=== PATIENT | female | born 1975 | race Caucasian/White ===

== ENCOUNTER 2021-04-17 11:40 | Day surgery (SDC) | payer BC ==
[2021-04-17] MEDS ORDERED: cefOXitin 1 GM in Premix Bag 1 BAG IV ONE (12:38)
[2021-04-17] MEDS ORDERED: Bupivacaine 0.5%/EPINEPHrine 1:200,000 50 ML MDV ONE (13:13)
[2021-04-17] MEDS ORDERED: Ondansetron 4 MG/2 ML SDV ONE (13:20)
[2021-04-17] MEDS ORDERED: Lactated Ringers 1,000 ML ONE (13:20)
[2021-04-17] MEDS ORDERED: Rocuronium 50 MG/5 ML Vial ONE (13:20)
[2021-04-17] MEDS ORDERED: Lidocaine 1% 4 ML ONE (13:20)
[2021-04-17] MEDS ORDERED: fentaNYL 250 MCG/5 ML SDV ONE (13:20)
[2021-04-17] MEDS ORDERED: Midazolam 1 MG/ML 2 ML SDV ONE (13:20)
[2021-04-17] MEDS ORDERED: Propofol 200 MG/20 ML SDV ONE (13:20)
[2021-04-17] MEDS ORDERED: Dexamethasone 4 MG/ML 5 ML MDV ONE (13:20)
[2021-04-17] MEDS ORDERED: Succinylcholine/Sod PF 100 MG/5 ML SYRINGE IV ONE (13:21)
--- NOTE | 2021-04-17 13:41 | PCM.PREANE ---
Preanesthetic Assessment - Procedure Proposed Procedure: Laparoscopic Appendectomy - Anesthesia/Transfusion/Family Hx Anesthesia History: Prior Anesthesia Without Reaction Family History of Anesthesia Reaction: No Intubation History: Unknown - Review of Systems General: No Symptoms Pulmonary: No Symptoms Cardiovascular: No Symptoms Gastrointestinal: Abdominal Pain (Mild), Decreased Appetite, Nausea (Earlier today) Neurological: No Symptoms Other: Reports: None - Physical Assessment NPO Status Date: 04/17/21 NPO Status Time: 09:30 ([place]) Vital Signs: Last Vital Signs Temp 36.4 C 04/17/21 11:53 Pulse 67 04/17/21 11:53 Resp 18 04/17/21 11:53 BP 111/73 04/17/21 11:53 Pulse Ox 100 04/17/21 11:53 Height: 1.78 m Weight: 92.941 kg ASA Class: 2 Mental Status: Alert & Oriented x3 Airway Class: Mallampati = 1 Dentition: Reports: Normal Dentition Thyro-Mental Finger Breadths: 3 Mouth Opening Finger Breadths: 3 ROM/Head Extension: Full Lungs: Clear to Auscultation, Normal Respiratory Effort Cardiovascular: Regular Rate, Regular Rhythm - Allergies Allergies/Adverse Reactions: Allergies Allergy/AdvReac Type Severity Reaction Status Date / Time amoxicillin [From Augmentin] Allergy Stomach Verified 04/17/21 11:49 Upset clarithromycin [From Biaxin] Allergy Rash Verified 04/17/21 11:49 clavulanic acid Allergy Stomach Verified 04/17/21 11:49 [From Augmentin] Upset - Acknowledgements Anesthesia Type Planned: General Anesthesia Pt an Appropriate Candidate for the Planned Anesthesia: Yes Alternatives and Risks of Anesthesia Discussed w Pt/Guardian: Yes Pt/Guardian Understands and Agrees with Anesthesia Plan: Yes PreAnesthesia Questionnaire HEENT History: Reports: Impaired Vision Cardiovascular History: Reports: None Respiratory History: Reports: Asthma Other Respiratory History: exercise induced Gastrointestinal History: Reports: None Genitourinary History: Reports: None [employer]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: Musculoskeletal History: Reports: None Neurological History: Reports: None Psychiatric History: Reports: None Endocrine/Metabolic History: Reports: None Hematologic History: Reports: None Immunologic History: Reports: None Oncologic (Cancer) History: Reports: None Dermatologic History: Reports: None - Infectious Disease History Infectious Disease History: Reports: Chicken Pox - Past Surgical History Head Surgeries/Procedures: Reports: None HEENT Surgical History: Reports: None Female Surgical History: Reports: Other (See Below) Other Female Surgeries/Procedures: Left ovary removed for twisted ovary w/cyst - SUBSTANCE USE Tobacco Use Status *Q: Never Tobacco User Second Hand Smoke Exposure: No Recreational Drug Use History: No - HOME MEDS Home Medications: Home Meds . [No Known Home Meds] 04/17/21 [History] - CURRENT (IN HOUSE) MEDS Current Meds: Current Medications Discontinued Medications Bupivacaine HCl/Epinephrine Bitart (Bupivacaine 0.5%/Epinephrine 1:200,000 50 Ml Mdv) Confirm Administered Dose 50 ml .ROUTE .STK-MED ONE Stop: 04/17/21 13:14 Dexamethasone (Dexamethasone 4 Mg/Ml 5 Ml Mdv) Confirm Administered Dose 20 mg .ROUTE .STK-MED ONE Stop: 04/17/21 13:21 Fentanyl (Fentanyl 250 Mcg/5 Ml Sdv) Confirm Administered Dose 250 mcg .ROUTE .STK-MED ONE Stop: 04/17/21 13:21 Cefoxitin Sodium 1 gm/ Premix 50 mls @ 100 mls/hr IV ONETIME ONE Stop: 04/17/21 13:07 Last Admin: 04/17/21 12:55 Dose: 100 mls/hr Documented by: Lidocaine HCl (Xylocaine-Mpf 1%) Confirm Administered Dose 4 mls @ as directed .ROUTE .STK-MED ONE Stop: 04/17/21 13:21 Lactated Ringer's (Ringers, Lactated) Confirm Administered Dose 1,000 mls @ as directed .ROUTE .STK-MED ONE Stop: 04/17/21 13:21 Midazolam HCl (Midazolam 1 Mg/Ml 2 Ml Sdv) Confirm Administered Dose 2 mg .ROUTE .STK-MED ONE Stop: 04/17/21 13:21 Ondansetron HCl (Ondansetron 4 Mg/2 Ml Sdv) Confirm Administered Dose 4 mg .ROUTE .STK-MED ONE Stop: 04/17/21 13:21 Propofol (Propofol 200 Mg/20 Ml Sdv) Confirm Administered Dose 400 mg .ROUTE .STK-MED ONE Stop: 04/17/21 13:21 Rocuronium [place] (Rocuronium 50 Mg/5 Ml Vial) Confirm Administered Dose 50 mg .ROUTE .STK-MED ONE Stop: 04/17/21 13:21
--- NOTE | 2021-04-17 14:07 | PCM.HP.2 ---
H&P History of Present Illness - General Date of Service: 04/17/21 Admit Problem/Dx: Admission Diagnosis/Problem Admission Diagnosis/Problem Appendicitis Source of Information: Patient History Limitations: Reports: No Limitations - History of Present Illness Initial Comments - Free Text/Narative: The patient had apigastric abdominal pain yesterday that became periumbilical then went to the right lower quadrant. SHe went to the hospital in [place] this AM. She did not have fevers or chills. SHe had some nausea without vomiting. She was worked up where her WBC was normal, UA was normal, Chemistry was normal and vitals were normal. CT of abd pelvis showed mild appendicitis. I was consulted and asked that she be transferred for care here. Duration of Symptoms: Reports: Day(s): (1) Location: Reports: Abdomen Quality: Reports: Ache Severity: Moderate Improves with: Reports: None, Immobilization Worsens with: Reports: Movement Right Lower Abdomen Pain Score (Numeric/FACES): 5 - Related Data Allergies/Adverse Reactions: Allergies Allergy/AdvReac Type Severity Reaction Status Date / Time amoxicillin [From Augmentin] Allergy Stomach Verified 04/17/21 11:49 Upset clarithromycin [From Biaxin] Allergy Rash Verified 04/17/21 11:49 clavulanic acid Allergy Stomach Verified 04/17/21 11:49 [From Augmentin] Upset Home Medications: Home Meds . 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: Musculoskeletal History: Reports: None Neurological History: Reports: None Psychiatric History: Reports: None Endocrine/Metabolic History: Reports: None Hematologic History: Reports: None Immunologic History: Reports: None Oncologic (Cancer) History: Reports: None Dermatologic History: Reports: None - Infectious Disease History Infectious Disease History: Reports: Chicken Pox - Past Surgical History Head Surgeries/Procedures: Reports: None HEENT Surgical History: Reports: None Female Surgical History: Reports: Other (See Below) Other Female Surgeries/Procedures: Left ovary removed for twisted ovary w/cyst Social & Family History - Family History Family Medical History: No Pertinent Family History - Tobacco Use Tobacco Use Status *Q: Never Tobacco User Second Hand Smoke Exposure: No - Caffeine Use Caffeine Use: Reports: Soda - Recreational Drug Use Recreational Drug Use: No H&P Review of Systems - Review of Systems: Review Of Systems: See Below General: Reports: No Symptoms HEENT: Reports: No Symptoms Pulmonary: Reports: No Symptoms Cardiovascular: Reports: No Symptoms Gastrointestinal: Reports: Abdominal Pain Genitourinary: Reports: No Symptoms Musculoskeletal: Reports: No Symptoms Skin: Reports: No Symptoms Exam - Exam Exam: See Below - Vital Signs Vital Signs: Last Vital Signs Temp 97.6 F 04/17/21 11:53 Pulse 67 04/17/21 11:53 Resp 18 04/17/21 11:53 BP 111/73 04/17/21 11:53 Pulse Ox 100 04/17/21 11:53 Weight: 92.941 kg - Exam General: Alert, Oriented, Cooperative Lungs: Clear to Auscultation, Normal Respiratory Effort Cardiovascular: Regular Rate, Regular Rhythm, Normal S1, Normal S2 GI/Abdominal Exam: Soft, No Organomegaly, No Distention, No Abnormal Bruit, Tender (periumbilical and RLQ) - Patient Data Lab Results Last 24 hrs: Laboratory Results - last 24 hr 04/17/21 Range/Units 13:00 SARS-CoV-2 RNA (JACKIE) Negative (NEGATIVE) Sepsis Event Note - Evaluation Sepsis Screening Result: No Definite Risk - Focused Exam Vital Signs: Vital Signs Temp Pulse Resp BP Pulse Ox 04/17/21 11:53 97.6 F 67 18 111/73 100 Problem List Initiated/Reviewed/Updated: No Orders Last 24hrs: Active Orders 24 hr Category Date Time Status Admission Status [Patient Status] [ADT] Routine ADT 04/17/21 13:01 Active Schedule Procedure [COMM] Stat Oth 04/17/21 13:04 Ordered Assessment/Plan Comment:: I reviewed the labs and confirmed the exam findings. I also reviewed the CT imaging. Based on these data, the patient has acute appendicitis. I discussed with her and her about options including antibiotics alone vs surgery. We discussed risks and benefits of each option. The patient wanted to proceed with surgery. Informed consent was obtained. We will proceed with surgery this afternoon.
--- NOTE | 2021-04-17 14:22 | PCM.PREANE ---
Preanesthetic Assessment - Anesthesia/Transfusion/Family Hx Anesthesia History: Prior Anesthesia Without Reaction Family History of Anesthesia Reaction: No Intubation History: Unknown - Physical Assessment NPO Status Date: 04/17/21 NPO Status Time: 09:30 ([place]) Vital Signs: Last Vital Signs Temp 36.4 C 04/17/21 11:53 Pulse 67 04/17/21 11:53 Resp 18 04/17/21 11:53 BP 111/73 04/17/21 11:53 Pulse Ox 100 04/17/21 11:53 Height: 1.78 m Weight: 92.941 kg - Lab Values: Laboratory Last Values SARS-CoV-2 RNA (JACKIE) Negative (NEGATIVE) 04/17/21 13:00 - Allergies Allergies/Adverse Reactions: Allergies Allergy/AdvReac Type Severity Reaction Status Date / Time amoxicillin [From Augmentin] Allergy Stomach Verified 04/17/21 11:49 Upset clarithromycin [From Biaxin] Allergy Rash Verified 04/17/21 11:49 clavulanic acid Allergy Stomach Verified 04/17/21 11:49 [From Augmentin] Upset PreAnesthesia Questionnaire HEENT History: Reports: Impaired Vision Cardiovascular History: Reports: None Respiratory History: Reports: Asthma Other Respiratory History: exercise induced Gastrointestinal History: Reports: None Genitourinary History: Reports: None 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: Musculoskeletal History: Reports: None Neurological History: Reports: None Psychiatric History: Reports: None Endocrine/Metabolic History: Reports: None Hematologic History: Reports: None Immunologic History: Reports: None Oncologic (Cancer) History: Reports: None Dermatologic History: Reports: None - Infectious Disease History Infectious Disease History: Reports: Chicken Pox - Past Surgical History Head Surgeries/Procedures: Reports: None HEENT Surgical History: Reports: None Female Surgical History: Reports: Other (See Below) Other Female Surgeries/Procedures: Left ovary removed for twisted ovary w/cyst - SUBSTANCE USE Tobacco Use Status *Q: Never Tobacco User Second Hand Smoke Exposure: No Recreational Drug Use History: No - HOME MEDS Home Medications: Home Meds . [No Known Home Meds] 04/17/21 [History] - CURRENT (IN HOUSE) MEDS Current Meds: Current Medications Discontinued Medications Bupivacaine HCl/Epinephrine Bitart (Bupivacaine 0.5%/Epinephrine 1:200,000 50 Ml Mdv) Confirm Administered Dose 50 ml .ROUTE .STK-MED ONE Stop: 04/17/21 13:14 Dexamethasone (Dexamethasone 4 Mg/Ml 5 Ml Mdv) Confirm Administered Dose 20 mg .ROUTE .STK-MED ONE Stop: 04/17/21 13:21 Fentanyl (Fentanyl 250 Mcg/5 Ml Sdv) Confirm Administered Dose 250 mcg .ROUTE .STK-MED ONE Stop: 04/17/21 13:21 Cefoxitin Sodium 1 gm/ Premix 50 mls @ 100 mls/hr IV ONETIME ONE Stop: 04/17/21 13:07 Last Admin: 04/17/21 12:55 Dose: 100 mls/hr Documented by: Lidocaine HCl (Xylocaine-Mpf 1%) Confirm Administered Dose 4 mls @ as directed .ROUTE .STK-MED ONE Stop: 04/17/21 13:21 Lactated Ringer's (Ringers, Lactated) Confirm Administered Dose 1,000 mls @ as directed .ROUTE .STK-MED ONE Stop: 04/17/21 13:21 Midazolam HCl (Midazolam 1 Mg/Ml 2 Ml Sdv) Confirm Administered Dose 2 mg .ROUTE .STK-MED ONE Stop: 04/17/21 13:21 Ondansetron HCl (Ondansetron 4 Mg/2 Ml Sdv) Confirm Administered Dose 4 mg .ROUTE .STK-MED ONE Stop: 04/17/21 13:21 Propofol (Propofol 200 Mg/20 Ml Sdv) Confirm Administered Dose 400 mg .ROUTE .STK-MED ONE Stop: 04/17/21 13:21 Rocuronium [place] (Rocuronium 50 Mg/5 Ml Vial) Confirm Administered Dose 50 mg .ROUTE .STK-MED ONE Stop: 04/17/21 13:21
[2021-04-17] MEDS ORDERED: Ketorolac 30 MG/ML SDV ONE (14:40)
[2021-04-17] MEDS ORDERED: fentaNYL 100 MCG/2 ML SDV IVPUSH PRN (15:09)
[2021-04-17] MEDS ORDERED: Ondansetron 4 MG/2 ML SDV IVPUSH PRN (15:09)
--- NOTE | 2021-04-17 15:09 | PCM.POSTAN ---
POST ANESTHESIA ASSESSMENT - MENTAL STATUS Mental Status: Alert, Oriented - VITAL SIGNS Vital Signs: Last Vital Signs Temp 36.4 C 04/17/21 11:53 Pulse 67 04/17/21 11:53 Resp 18 04/17/21 11:53 BP 111/73 04/17/21 11:53 Pulse Ox 100 04/17/21 11:53 - RESPIRATORY Respiratory Status: Respiratory Rate WNL, Airway Patent, O2 Saturation Stable, Supplemental Oxygen - CARDIOVASCULAR CV Status: Pulse Rate WNL, Blood Pressure Stable - GASTROINTESTINAL GI Status: No Symptoms - PAIN Pain Score: 0 - POST OP HYDRATION Hydration Status: Adequate & Stable
--- NOTE | 2021-04-17 16:11 | OR ---
DATE OF OPERATION: 04/17/2021 SURGEON: Veronika Yap MD PREOPERATIVE DIAGNOSIS: Early appendicitis. POSTOPERATIVE DIAGNOSIS: Acute appendicitis. OPERATION PERFORMED: Laparoscopic appendectomy. ESTIMATED BLOOD LOSS: 5 mL. FINDINGS: Inflamed appendix and periappendiceal fat. ANESTHESIA: General endotracheal. COMPLICATIONS: None. INDICATION AND CONSENT: Ms. Pitts is a 45-year-old female who had abdominal pain since last night. Pain was epigastric, then localized to periumbilical and right lower quadrant. The patient went to see the doctor today, where labs were normal, but CT scan was concerning for early appendicitis. The patient was sent to me for further evaluation. I saw the patient, confirmed the findings and offered the patient choice for both antibiotic versus surgical treatment. The patient decided to proceed with surgical treatment. We discussed risks, benefits, and alternatives, and informed consent was obtained. DESCRIPTION OF PROCEDURE: The patient was taken to the operating room, placed in supine position, and then the patient was padded appropriately. Then, the abdomen was prepped and draped in the usual sterile fashion. The patient had received 1 g of cefoxitin preoperatively. A time-out was performed and we began the procedure by injecting local anesthetic consisting 1% lidocaine with 1:100,000 epinephrine in the infraumbilical position. Incision was made at this site. The umbilical stalk was elevated and a Veress needle was inserted. Abdomen was insufflated to 15 mmHg. Then, a 12 mm trocar was placed at this site under direct visualization with a 5 mm scope. Then, 2 additional 5 mm scopes were placed, 1 in the suprapubic and other one in the left lower quadrant. Then, the abdomen was inspected. There were no signs of any injuries. Once this was done, then the patient was placed in the Trendelenburg and left-sided down. We focused in the right lower quadrant. The appendix was identified, was inflamed, and the periappendiceal fat was also inflamed. Using LigaSure Impact, mesoappendix was taken. Appendix was inflamed down to its base. Therefore, little bit of cecum was cleared and a blue load Endo-DAVID stapler was used to take the entire appendix with a small sleeve of the cecum to be sure to take all the inflamed tissue. The staple line appeared to be hemostatic. The specimen was placed in the EndoCatch bag and then we inspected the entire abdomen. No other abnormalities were found and then the specimen was removed through the infraumbilical incision and then the fascia at this site was closed with 0 Vicryl stitches using Eliecer-Kaykay device, then the abdomen was desufflated, and skin at all 3 sites were closed with 4-0 Monocryl followed by Dermabond. The patient tolerated the procedure well. At the end of the procedure, all instruments, sharps, and sponges were counted and found to be correct x2. The patient was awoken from anesthesia, extubated, and taken to the PACU for recovery. The patient will be allowed to return home and will receive a followup phone call within 2 weeks. RENE /[id number]
--- NOTE | 2021-04-17 16:44 | PCM48HPAN ---
Post Anesthesia Note - EVALUATION WITHIN 48HRS OF ANESTHETIC Vital Signs in Normal Range: Yes Patient Participated in Evaluation: Yes Respiratory Function Stable: Yes Airway Patent: Yes Cardiovascular Function Stable: Yes Hydration Status Stable: Yes Pain Control Satisfactory: Yes Nausea and Vomiting Control Satisfactory: Yes Mental Status Recovered: Yes Vital Signs: Last Vital Signs Temp 36.4 C 04/17/21 15:05 Pulse 60 04/17/21 16:30 Resp 18 04/17/21 16:30 BP 106/72 04/17/21 16:30 Pulse Ox 98 04/17/21 16:30 - COMMENTS/OBSERVATIONS Free Text/Narrative:: no anesthesia complications noted
== END 2021-04-17 16:50 | disposition home or self-care (01) ==
LOC: JD.ED 11:40 → JD.SDS 13:28
PROVIDERS: ATTEND Surgery
DX: K35.80 Unspecified acute appendicitis (principal); D3A.020 Benign carcinoid tumor of the appendix; J45.909 Unspecified asthma, uncomplicated; Z98.890 Other specified postprocedural states; Z01.812 Encounter for preprocedural laboratory examination; Z20.822 Contact with and (suspected) exposure to COVID-19; Z88.1 Allergy status to other antibiotic agents; Z88.8 Allergy status to other drugs, medicaments and biological substances; Z88.2 Allergy status to sulfonamides
CPT/HCPCS: 44970; 87635; J0694; J1100; J1885; J2250; J2405; J2704; J2710; J3010; J3490; J7120; 00840; J0330; U0002